=== PATIENT | male | born 1960 | race Caucasian/White ===

== ENCOUNTER 2024-08-18 13:27 | Emergency (ER) | payer MEDICARE, SELFPAY ==
[2024-08-18 13:28] VITALS: BMI 33.0
[2024-08-18 14:23] VITALS: BP 125/82; PULSE 79; RESP 18; TEMP 36.9; O2SAT 99
--- NOTE | 2024-08-18 14:30 | EKG_ITS ---
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
--- NOTE | 2024-08-18 14:55 | XR_ITS ---
Examination: CT brain head without contrast. 2-D sagittal coronal reconstructions Date and time of exam:August 18, 2024 1535 hours Comparison September 28, 2023 INDICATIONS: Headaches beginning 3 days ago CTDI: vol (mGy):51.2 DLP: (mGycm):1091 Technique: Multiple CT axial sections of the brain have been obtained, 5 mm slice thickness. Contrast has not been administered. 2-D sagittal, coronal reconstructions have been obtained Low dose protocols were performed. One or more of the following dose reduction techniques were used; automated exposure control, adjustment of the mA and/or KV according to patient size, use of iterative reconstruction technique. Findings: No significant ventricular enlargement. Intra-axial or extra-axial hemorrhage density is not seen. No mass effect or midline shift Basal cisterns are not remarkable. Fourth ventricle is midline. Cranial vault intact. Impression: Negative for acute hemorrhage, mass effect or midline shift Significant chronic ethmoid sinusitis Advise clinical correlation and follow-up accordingly
--- NOTE | 2024-08-18 14:56 | XR_ITS ---
Examination: PA lateral chest 2 views TECHNIQUE: Upright PA lateral chest 2 views Exam date and time: August 18, 2024 1523 hours INDICATIONS: Chest pain dizziness beginning 3 days ago FINDINGS: Normal heart size Lungs are clear. The osseous structures are intact IMPRESSION: No active disease
--- NOTE | 2024-08-18 14:56 | PD.EDRME ---
Rapid Medical Screening Exam E Arrival date/time: 08/18/24 13:27 64-year-old male presents the emergency department complaint of dizziness headache chest pain and fatigue Chief Complaint: Flu Like Symptoms Vital signs: Vital Signs Temperature 98.5 F 08/18/24 14:23 Pulse Rate 79 08/18/24 14:23 Respiratory Rate 18 08/18/24 14:23 Blood Pressure 125/82 08/18/24 14:23 Pulse Oximetry (%) 99 08/18/24 14:23 Oxygen Delivery Method Room Air 08/18/24 14:23
[2024-08-18 15:28] LABS: Basophils % (Auto) 0 % (0-2.5); Eosinophils # (Auto) 0.2 Thou/mm3 (0.0-0.5); Eosinophils % (Auto) 3 % (0-10); Hematocrit 43.8 % (41.0-53.0); Immature Granulocytes % (Auto) 0 % (0-0); Immature Granulocytes Auto 0.02 Thou/mm3 (0.00-0.00); Lymphocytes # (Auto) 2.1 Thou/mm3 (1.0-4.8); Lymphocytes % (Auto) 34 % (10-50); Mean Corpuscular HGB Conc 34.2 g/dl (31.0-37.0); Mean Corpuscular Hemoglobin 29.4 pg (25.0-35.0); Mean Corpuscular Volume 86 fL (80-100); Monocytes # (Auto) 0.4 Thou/mm3 (0.0-0.8); Monocytes % (Auto) 7 % (0-12); Neutrophils # (Auto) 3.5 Thou/mm3 (1.8-7.7); Neutrophils % (Auto) 56 % (37-80); Nucleated Red Blood Cell % 0 /100 WBC (0); Platelet Count 214 Thou/mm3 (140-440); RDW Standard Deviation 39.8 fL (35.1-43.9); Red Blood Count 5.11 Miln/mm3 (4.50-5.90); White Blood Count 6.2 Thou/mm3 (3.8-10.6)
[2024-08-18 15:48] LABS: B-Type Natriuretic Peptide < 20 pg/mL (0-100)
[2024-08-18 15:49] LABS: INR 1.1 (0.9-1.3); Partial Thromboplastin Time 29.4 Seconds (22.0-36.0); Prothrombin Time 11.7 Seconds (9.0-12.2)
[2024-08-18 15:50] LABS: Alanine Aminotransferase 22 U/L (10-49); Albumin, Serum 4.7 gm/dL (3.4-4.8); Albumin/Globulin Ratio 1.6 (1.2-2.2); Alkaline Phosphatase 91 U/L (46-116); Anion Gap 8 (7-16); Aspartate Amino Transferase 23 U/L (0-34); BUN/Creatinine Ratio 11 Ratio (12-20); Bilirubin,Total 0.5 mg/dL (0.3-1.2); Blood Urea Nitrogen 11 mg/dL (9-23); Calcium 9.4 mg/dL (8.3-10.6); Calcium (Corrected) 9.4 mg/dL (8.5-10.1); Chloride 104 mMol/L (98-107); Estimated Creatinine Clearance 81.8 mL/min (>60); Globulin 2.9 gm/dL (2.3-3.5); Glucose 106 mg/dL (74-106); Lipase 31 U/L (12-53); Magnesium 2.1 mg/dL (1.6-2.6); Osmolality,Calculated 273 (275-295); Potassium 4.5 mMol/L (3.4-5.1); Sodium 137 mMol/L (136-145); Total Protein 7.6 gm/dL (5.7-8.2); Troponin I < 0.002 ng/mL (0.0-0.045); eGFR > 60 See Note
--- NOTE | 2024-08-18 16:42 | EDNOTE_ITS ---
<Statement entered by Susan Villar MD - 08/19/24 16:30> As co-signing physician, I was present and available for consult prn. I concur with the plan and care as documented by the midlevel provider. Upper Respiratory Inf. RME/HPI General Chief Complaint: Flu Like Symptoms Stated Complaint: sob, fever, cp, headache x 3 days Time Seen by Provider: 08/18/24 16:27 Arrival date/time: 08/18/24 13:27 RME / HPI RME / HPI Narrative: 64-year-old male patient came in for evaluation regarding left-sided chest pain. This been ongoing for the last 3 days associated with shortness of breath not feeling well, headache, dizziness, severity moderate. Patient called his PCP and was advised to go to the emergency room to rule out cardiac events. Denies any other complaints. Patient has been taking his oxycodone twice a day. Patient denies any cough. Related Data Home Medications ?Medication ?Instructions ?Recorded ?Confirmed nitroglycerin 0.4 mg sublingual 0.4 mg buccal PRN PRN Angina 12/02/21 12/06/23 tablet pantoprazole 40 mg tablet,delayed 40 mg PO QDAY PRN Ac id Reflux 12/02/21 12/06/23 release alprazolam 0.5 mg tablet 0.5 mg PO QDAY PRN Anxiety 0 12/06/23 12/06/23 isosorbide mononitrate 30 mg 30 mg PO QAM 12/06/23 tablet,extended release 24 hr levothyroxine 25 mcg tablet 25 mcg PO QDAY 12/06/23 melatonin 2.5 mg chewable tablet 2.5 mg PO HS PRN Inso mnia 12/06/23 12/06/23 ranolazine 500 mg tablet,extended 500 mg PO DAILY 11/1312/06/23 release,12 hr Previous Rx's ?Medication ?Instructions ?Recorded atorvastatin 80 mg tablet 80 mg PO QPM #30 tabs clopidogrel 75 mg tablet (Plavix) 75 mg PO QDAY #30 ta bs 11/05/20 aspirin 325 mg tablet 325 mg PO QDAY #30 tabs 11/13 07/05 Allergies Allergy/AdvReac Type Severity Reaction Status Date / Time No Known Allergies Allergy Verified 09/28/23 13:01 Review of Systems Review of Systems Narrative Review of Systems: Review of system reviewed and within normal limits except mentioned in HPI ED Exam Narrative Physical exam: VITAL SIGNS: Reviewed. GENERAL APPEARANCE: Alert and interactive, follows commands, no acute distress, HEAD AND FACE: Non-traumatic. ENT: PERRL, pink conjunctivitis, eyelid no trauma, Mucous membrane moist. NECK: On the neck brace, no nuchal rigidity. CHEST: No tenderness, no crepitus, no paradoxical movement, no retractions. LUNGS: Clear, well ventilated, symmetric, no rales, no wheezing, no ronchi, no stridor, good breath sounds bilaterally. HEART: Regular rate, regular rhythm, no murmur, no gallops. ABDOMEN: Soft, positive bowel sounds, nondistended, no guarding, nontender, no rebound, no masses, RECTAL: Deferred. GENITAL: Deferred. NEUROLOGICAL: Gross motor function intact sensory function intact, Appropriate for age. MUSCULOSKELETAL: low back nontender, full range of motion. EXTREMITIES: Nontender, full range of motion. SKIN: Color pink, dry, no rash, no lacerations, no abrasions, no contusions. LYMPHATICS: Deferred. Course Quality Measures none Orders Category Date Time Status EKG (ED ONLY) *Do not use* NOW Care 08/18/24 14:[address] head/brain wo con Stat Exams 08/18/24 14:55 Completed EKG (ED Only) Stat Exams 08/18/24 14:30 Draft XR chest 2V Stat Exams 08/18/24 14:56 Completed B-Type Natriuretic Peptide Stat Lab 08/18/24 15:04 Completed CBC Stat Lab 08/18/24 15:04 Completed Comprehensive Metabolic Panel Stat Lab 08/18/24 15:04 Completed Lipase Stat Lab 08/18/24 15:04 Completed Magnesium Stat Lab 08/18/24 15:04 Completed Partial Thromboplastin Time Stat Lab 08/18/24 15:04 Completed Prothrombin Time with INR Stat Lab 08/18/24 15:04 Completed Troponin I Stat Lab 08/18/24 15:04 Completed Vital Signs Vital signs: Vital Signs Temperature 98.5 F 08/18/24 14:23 Pulse Rate 79 08/18/24 14:23 Respiratory Rate 18 08/18/24 14:23 Blood Pressure 125/82 08/18/24 14:23 Pulse Oximetry (%) 99 08/18/24 14:23 Oxygen Delivery Method Room Air 08/18/24 14:23 Upper Respiratory Infection [facility] Narrative [facility] Narrative:: 64-year-old male patient came in for evaluation regarding left-sided chest pain. This been ongoing for the last 3 days associated with shortness of breath not feeling well, headache, dizziness, severity moderate. Patient called his PCP and was advised to go to the emergency room to rule out cardiac events. Denies any other complaints. Patient has been taking his oxycodone twice a day. Patient denies any cough. Patient cardiac workup all came back normal. EKG showed sinus rhythm, ventricular to 67 bpm, no ST segment elevation depression noted. CT scan of the head came back unremarkable. The rest of the labs unremarkable. Troponin is normal. Repeat troponin is noted this patient still having chest discomfort for the last 3 days. Patient appears nontoxic and hemodynamically stable. Patient discharged home and instructed to follow-up with primary care provider in 24 to 48 hours. 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 How is presenting disease/condition affected by chronic disease/condition?: exacerbated by Evaluation data The following diagnostics were reviewed and interpreted by me:: lab results, radiology exam(s) and EKG tracing(s) Lab and/or radiology exams considered but not ordered:: None Interpretation Summary: See results in MDM Medications / Prescriptions Medications or Prescriptions considered but not ordered:: None Medication administrations:: None Consultations Consultation(s) initiated? (list below): No Diagnosis Upper Respiratory Differential Diagnosis: viral infection and other (Chest pain, headache, dizziness) Most likely diagnosis given after review of the tests above:: Chest pain, neck pain Admission Indicated Admission indicated?: not indicated Admission Request Was there a request for admission?: No Disposition Plan Disposition Plan: Discharge Discharge Attestation Discharge Attestation: The patient and all family members were given an opportunity to ask questions and understood the discharge instructions. Discharge instructions specifically effects, indications for sooner follow up or return to the emergency department, and the expected course of current diagnosis. Patient condition: Stable Discharge Plan Plan Patient Disposition: HOME (Self Care) Disposition Comment: Stable Prescriptions/Referrals Prescriptions/Med Rec: No Action pantoprazole 40 mg Tablet,Delayed Release (Dr/Ec) 40 mg PO QDAY PRN (Reason: Acid Reflux) nitroglycerin 0.4 mg Tablet, Sublingual 0.4 mg BUCCAL PRN PRN (Reason: Angina) aspirin 325 mg Tablet 325 mg PO QDAY Qty: 30 0RF clopidogrel [Plavix] 75 mg Tablet 75 mg PO QDAY Qty: 30 0RF atorvastatin 80 mg tablet 80 mg PO QPM Qty: 30 0RF levothyroxine 25 mcg Tablet 25 mcg PO QDAY alprazolam 0.5 mg Tablet 0.5 mg PO QDAY PRN (Reason: Anxiety) ranolazine 500 mg Tablet Extended Release 12 Hr 500 mg PO DAILY melatonin 2.5 mg Tablet,Chewable 2.5 mg PO HS PRN (Reason: Insomnia) isosorbide mononitrate 30 mg Tablet Extended Release 24 Hr 30 mg PO QAM Problem List Clinical Impression: Chest pain, Neck pain Patient/Caregiver Discharge Instructions Discharge Activity: activity as tolerated Education Materials: Medicine for Pain, ED Pain, Acute, Uncertain Cause Additional Instructions: Thank you for the opportunity for serving you today. You are stable for discharged . You are advised to: Follow-up with your PCP in 1 to 2 days Return to ED for worsening of symptoms Increase oral fluids Your cardiac workup today all came back unremarkable. The CT scan of your head also came back normal. The rest of the labs unremarkable. Take your pain medication responsibly. Print Language: Pashto Stand Alone Forms: Lalitha Award Info., Patient Portal Info Letter NIKHIL/JASWINDER Supervising Physician NIKHIL/JASWINDER Supervising Physician: MD Jian
== END 2024-08-18 17:05 | disposition home or self-care (01) ==
PROVIDERS: Nurse Practitioner Primary Care; Emergency Provider Emergency Medicine
DX: R07.89 Other chest pain (principal); M54.2 Cervicalgia; R42 Dizziness and giddiness; R51.9 Headache, unspecified; I44.1 Atrioventricular block, second degree; I10 Essential (primary) hypertension
CPT/HCPCS: 36415; 70450; 71046; 80053; 83690; 83735; 83880; 84484; 85025; 85610; 85730; 93005; 99284

== ENCOUNTER → 2024-11-14 | Outpatient (CLI) | payer MEDICARE, SELFPAY ==
--- NOTE | 2024-11-14 16:08 | XR_ITS ---
EXAMINATION: Ankle, left 3 views . Technique: Ankle AP, oblique, lateral 3 views Date and time of exam: November 14, 2024, 1624 hours INDICATIONS: Patient fell today with injury to the ankle, ankle pain. FINDINGS: No ankle fracture or dislocation. No foreign body. Plantar posterior bony calcaneal spurs. IMPRESSION: No acute fracture
--- NOTE | 2024-11-14 16:08 | XR_ITS ---
Examination: Tibia-Fibula, left , 2 views Technique: Tibia-fibula AP lateral 2 views Date and time of exam: November 14, 2024, 6009 hours INDICATIONS: Lower leg swelling and pain after falling today with injury to the lower leg FINDINGS: No acute fracture. No dislocation. No foreign body IMPRESSION: No acute fracture.
== END | disposition home or self-care (01) ==
PROVIDERS: Referring Provider Nurse Practitioner Family; Visit Provider Nurse Practitioner Family
DX: S89.92XA Unspecified injury of left lower leg, initial encounter (principal); S99.912A Unspecified injury of left ankle, initial encounter; W19.XXXA Unspecified fall, initial encounter
CPT/HCPCS: 73590; 73610

== ENCOUNTER → 2024-12-08 | Outpatient (CLI) | payer MEDICARE, SELFPAY ==
--- NOTE | 2024-12-08 | XR_ITS ---
Examination: Duplex scan of the lower extremity, unilateral left complete Date and time of exam: December 08, 2024 1128 hours INDICATIONS: Left leg pain and swelling post Surgery July 2024 Technique: Duplex scan of the extremity veins using B-mode/grayscale imaging and Doppler spectral analysis and color flow Attention is directed to internal echogenicity, compression and augmentation involving these veins, color flow assessment, spectral analysis Findings: Major deep venous structures in the extremity demonstrate normal course and caliber. There is no evidence of deep vein thrombosis. Normal color flow and spectral analysis Impression: Negative for DVT..
== END | disposition home or self-care (01) ==
LOC: CDIM 11:10
PROVIDERS: PCP Nurse Practitioner Family; Referring Provider Nurse Practitioner Family; Visit Provider Nurse Practitioner Family
DX: M79.605 Pain in left leg (principal)
CPT/HCPCS: 93971

== ENCOUNTER 2025-04-25 12:24 | Emergency (ER) | payer MEDICARE, SELFPAY ==
[2025-04-25 12:25] VITALS: BMI 33.0
--- NOTE | 2025-04-25 12:29 | EKG_ITS ---
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
[2025-04-25 12:34] VITALS: BP 161/91; PULSE 71; RESP 18; TEMP 36.7; O2SAT 97
--- NOTE | 2025-04-25 12:42 | XR_ITS ---
EXAMINATION: PA chest single view TECHNIQUE: Upright PA chest single view Date and time: April 25, 2025, 1259 hours, comparison August 18, 2024 INDICATIONS: Left-sided chest pain shortness of breath and weakness today. FINDINGS: Early pneumonia in the left lower lung zone Right lung clear Normal heart size IMPRESSION: Early pneumonia in the left lower lung zone
--- NOTE | 2025-04-25 12:43 | PD.EDCHEST ---
ED Chest Pain RME/HPI General Chief Complaint: Chest Pain Stated Complaint: CHEST PAIN; HX TX, CARDIAC STENTS Time Seen by Provider: 04/25/25 12:41 Arrival date/time: 04/25/25 12:24 04/25/25 12:20 60-year-old male patient with significant history of anxiety, chronic neck pain, diabetes mellitus hypertension, came in for evaluation regarding left-sided chest pain. Patient has been having left-sided chest pain for more than a week, getting worse today, severity moderate. Patient told me the pain does not radiate.. Patient also complained of shortness of breath. Patient took oxycodone today. Patient denies any cough denies any other complaints no medication was taken prior to ER visit. Related Data Home Medications ?Medication ?Instructions ?Recorded ?Confirmed nitroglycerin 0.4 mg sublingual 0.4 mg buccal PRN PRN Angina 12/02/21 12/06/23 tablet pantoprazole 40 mg tablet,delayed 40 mg PO QDAY PRN Acid Reflux 12/02/21 12/06/23 release alprazolam 0.5 mg tablet 0.5 mg PO QDAY PRN Anxiety 12/06/23 12/06/23 isosorbide mononitrate 30 mg 30 mg PO QAM 12/06/23 12/06/23 tablet,extended release 24 hr levothyroxine 25 mcg tablet 25 mcg PO QDAY 12/06/23 12/06/23 melatonin 2.5 mg chewable tablet 2.5 mg PO HS PRN Insomnia 12/06/23 12/06/23 ranolazine 500 mg tablet,extended 500 mg PO DAILY 12/06/23 12/06/23 release,12 hr Previous Rx's ?Medication ?Instructions ?Recorded atorvastatin 80 mg tablet 80 mg PO QPM #30 tabs 11/05/20 clopidogrel 75 mg tablet (Plavix) 75 mg PO QDAY #30 tabs 11/05/20 aspirin 325 mg tablet 325 mg PO QDAY #30 tabs 12/02/21 levofloxacin 500 mg tablet 500 mg PO Q24H 7 days #7 tabs 04/25/25 Allergies Allergy/AdvReac Type Severity Reaction Status Date / Time No Known Allergies Allergy Verified 04/25/25 12:28 Review of Systems Review of Systems Narrative Review of Systems: Review of system reviewed and within normal limits except mentioned in HPI ED Exam Narrative Physical exam: VITAL SIGNS: Reviewed. GENERAL APPEARANCE: Alert and interactive, follows commands, no acute distress, HEAD AND FACE: Non-traumatic. ENT: PERRL, pink conjunctivitis, eyelid no trauma, Mucous membrane moist. NECK: Supple, nontender, no nuchal rigidity. CHEST: Left-sided chest tenderness, no crepitus, no paradoxical movement, no retractions. LUNGS: Clear, well ventilated, symmetric, no rales, no wheezing, no ronchi, no stridor, good breath sounds bilaterally. HEART: Regular rate, regular rhythm, no murmur, no gallops. ABDOMEN: Soft, positive bowel sounds, nondistended, no guarding, nontender, no rebound, no masses, RECTAL: Deferred. GENITAL: Deferred. NEUROLOGICAL: Gross motor function intact sensory function intact, Appropriate for age. MUSCULOSKELETAL: low back nontender, full range of motion. EXTREMITIES: Nontender, full range of motion. SKIN: Color pink, dry, no rash, no lacerations, no abrasions, no contusions. LYMPHATICS: Deferred. Course Quality Measures none Orders Category Date Time Status EKG (ED ONLY) *Do not use* NOW Care 04/25/25 12:29 Completed EKG (ED Only) Stat Exams 04/25/25 12:29 Draft XR chest 1V Stat Exams 04/25/25 12:42 Completed B-Type Natriuretic Peptide Stat Lab 04/25/25 13:07 Completed CBC Stat Lab 04/25/25 13:07 Completed Comprehensive Metabolic Panel Stat Lab 04/25/25 13:07 Completed Partial Thromboplastin Time Stat Lab 04/25/25 13:07 Completed Prothrombin Time with INR Stat Lab 04/25/25 13:07 Completed Troponin I Stat Lab 04/25/25 13:07 Completed Urinalysis, C/S if Indicated Stat Lab 04/25/25 14:31 Completed Aspirin Med 04/25/25 12:42 Discontinued 325 mg PO X1 ONE Morphine* Inj Med 04/25/25 15:14 Discontinued 4 mg IM X1 ONE mg Hyd/Al Hyd/Solitario Susp [Maalox Susp] Med 04/25/25 12:42 Discontinued 30 ml PO X1 ONE Vital Signs Vital signs: Vital Signs Temperature 98.0 F 04/25/25 12:34 Pulse Rate 71 04/25/25 12:34 Respiratory Rate 18 04/25/25 12:34 Blood Pressure 161/91 H 04/25/25 12:34 Pulse Oximetry (%) 97 04/25/25 12:34 Oxygen Delivery Method Room Air 04/25/25 12:34 Chest Pain MDM Narrative MDM Narrative:: 04/25/25 12:20 60-year-old male patient with significant history of anxiety, chronic neck pain, diabetes mellitus hypertension, came in for evaluation regarding left-sided chest pain. Patient has been having left-sided chest pain for more than a week, getting worse today, severity moderate. Patient told me the pain does not radiate.. Patient also complained of shortness of breath. Patient took oxycodone today. Patient denies any cough denies any other complaints no medication was taken prior to ER visit. Patient is not very good compliant with aspirin and Plavix Patient workup including troponin came back unremarkable. Repeat troponin is not needed at this time patient's been having pain for more than a week. Patient chest pain is probably related to his chronic pain syndrome. EKG showed normal sinus rhythm, ventricular rate of 66 bpm, no ST segment elevation or depression noted. Patient received morphine Maalox and aspirin in the emergency room. With significant improvement of pain. Chest x-ray is read as possible early pneumonia patient is not having any cough no fever however we decided to give him Levaquin. 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 Patient agrees with the plan. Stable for discharge home Patient data External records reviewed:: None Clinical information provided by:: patient Social determinants that could affect healthcare access:: none Patient has the following chronic illnesses:: CAD, history of stents How is presenting disease/condition affected by chronic disease/condition?: exacerbated by Evaluation data The following diagnostics were reviewed and interpreted by me:: lab results, radiology exam(s) and EKG tracing(s) Lab and/or radiology exams considered but not ordered:: See MDM Interpretation Summary: See MDM Medications / Prescriptions Medications or Prescriptions considered but not ordered:: None Medication administrations:: Medication Administration History Discontinued Medications Al Hydrox/Mg Hydrox/Simethicone (Mg Hyd/Al Hyd/Solitario (Maalox Reg) Susp 30 Ml Udc) 30 ml PO X1 ONE Stop: 04/25/25 12:43 Last Admin: 11/12/25 12:50 Dose: 30 ml Documented By: Aspirin (Aspirin 325 Mg Tablet) 325 mg PO X1 ONE Stop: 04/25/25 12:43 Last Admin: 04/25/25 12:49 Dose: 325 mg Documented By: Morphine Sulfate (Morphine Sulf Inj 4 Mg/Ml Vial) 4 mg IM X1 ONE Stop: 04/25/25 15:15 Last Admin: 04/25/25 15:37 Dose: 4 mg Documented By: GM Morphine aspirin and Maalox Consultations Consultation(s) initiated? (list below): No Diagnosis Chest Pain Differential Diagnosis: pneumothorax, stable angina and chest pain Most likely diagnosis given after review of the tests above:: Chest pain, chronic pain syndrome Admission Indicated Admission indicated?: not indicated Admission Request Was there a request for admission?: No Disposition Plan Disposition Plan: Discharge Discharge Attestation Discharge Attestation: The patient and all family members were given an opportunity to ask questions and understood the discharge instructions. Discharge instructions specifically effects, indications for sooner follow up or return to the emergency department, and the expected course of current diagnosis. Patient condition: Stable Discharge Plan Plan Patient Disposition: HOME (Self Care) Discharge Disposition comment: Stable Prescriptions/Referrals Prescriptions/Med Rec: New levofloxacin 500 mg tablet 500 mg PO Q24H 7 Days Qty: 7 0RF No Action pantoprazole 40 mg Tablet,Delayed Release (Dr/Ec) 40 mg PO QDAY PRN (Reason: Acid Reflux) nitroglycerin 0.4 mg Tablet, Sublingual 0.4 mg BUCCAL PRN PRN (Reason: Angina) aspirin 325 mg Tablet 325 mg PO QDAY Qty: 30 0RF clopidogrel [Plavix] 75 mg Tablet 75 mg PO QDAY Qty: 30 0RF atorvastatin 80 mg tablet 80 mg PO QPM Qty: 30 0RF levothyroxine 25 mcg Tablet 25 mcg PO QDAY alprazolam 0.5 mg Tablet 0.5 mg PO QDAY PRN (Reason: Anxiety) ranolazine 500 mg Tablet Extended Release 12 Hr 500 mg PO DAILY melatonin 2.5 mg Tablet,Chewable 2.5 mg PO HS PRN (Reason: Insomnia) isosorbide mononitrate 30 mg Tablet Extended Release 24 Hr 30 mg PO QAM Problem List Clinical Impression: Chest pain, Chronic pain syndrome Patient/Caregiver Discharge Instructions Discharge Activity: activity as tolerated Education Materials: Managing Chronic Pain Additional Instructions: Thank you for the opportunity for serving you today. You are stable for discharged . You are advised to: Follow-up with your PCP in 1 to 2 days Return to ED for worsening of symptoms Print Language: Beninese Stand Alone Forms: Lalitha Award Info., Patient Portal Info Letter PA/JASWINDER Supervising Physician NIKHIL/JASWINDER Supervising Physician: MD Ugo
[2025-04-25] MEDS: MG HYD/AL HYD/SIME (Maalox Reg) SUSP 30 ML UDC PO (12:50)
[2025-04-25 13:41] LABS: B-Type Natriuretic Peptide < 20 pg/mL (0-100)
[2025-04-25 13:44] LABS: Alanine Aminotransferase 22 U/L (10-49); Albumin, Serum 5.1 gm/dL (3.4-4.8); Albumin/Globulin Ratio 1.9 (1.2-2.2); Alkaline Phosphatase 81 U/L (46-116); Anion Gap 10 (7-16); Aspartate Amino Transferase 22 U/L (0-34); BUN/Creatinine Ratio 7 Ratio (12-20); Basophils # (Auto) 0.0 Thou/mm3 (0.0-0.2); Basophils % (Auto) 0 % (0-2.5); Bilirubin,Total 0.6 mg/dL (0.3-1.2); Blood Urea Nitrogen 6 mg/dL (9-23); Calcium 10.0 mg/dL (8.3-10.6); Calcium (Corrected) 10.0 mg/dL (8.5-10.1); Carbon Dioxide 26.4 mMol/L (20.0-31.0); Chloride 104 mMol/L (98-107); Creatinine (Component) 0.9 mg/dL (0.6-1.3); Eosinophils # (Auto) 0.1 Thou/mm3 (0.0-0.5); Eosinophils % (Auto) 2 % (0-10); Estimated Creatinine Clearance 90.8 mL/min (>60); Globulin 2.7 gm/dL (2.3-3.5); Glucose 92 mg/dL (74-106); Hematocrit 45.1 % (41.0-53.0); Hemoglobin 15.2 g/dL (13.5-16.0); Immature Granulocytes Auto 0.01 Thou/mm3 (0.00-0.00); Lymphocytes # (Auto) 2.8 Thou/mm3 (1.0-4.8); Lymphocytes % (Auto) 44 % (10-50); Mean Corpuscular HGB Conc 33.7 g/dl (31.0-37.0); Mean Corpuscular Hemoglobin 29.2 pg (25.0-35.0); Mean Corpuscular Volume 87 fL (80-100); Monocytes # (Auto) 0.5 Thou/mm3 (0.0-0.8); Monocytes % (Auto) 7 % (0-12); Neutrophils # (Auto) 2.9 Thou/mm3 (1.8-7.7); Neutrophils % (Auto) 46 % (37-80); Nucleated Red Blood Cell # 0.00 Thou/mm3 (0.00-0.00); Nucleated Red Blood Cell % 0 /100 WBC (0); Osmolality,Calculated 277 (275-295); Platelet Count 193 Thou/mm3 (140-440); Potassium 4.4 mMol/L (3.4-5.1); RDW Standard Deviation 41.7 fL (35.1-43.9); Red Blood Count 5.21 Miln/mm3 (4.50-5.90); Sodium 140 mMol/L (136-145); Total Protein 7.8 gm/dL (5.7-8.2); Troponin I < 0.002 ng/mL (0.0-0.045); White Blood Count 6.3 Thou/mm3 (3.8-10.6); eGFR > 60 See Note
[2025-04-25 13:54] LABS: INR 1.1 (0.9-1.3); Partial Thromboplastin Time 27.8 Seconds (22.0-36.0); Prothrombin Time 11.4 Seconds (9.0-12.2)
[2025-04-25 14:26] VITALS: BP 142/83; PULSE 65; RESP 18; TEMP 37; O2SAT 96
[2025-04-25 14:54] LABS: Collection Type, Urine Clean Catch; Squamous Epithelial Cell,Urine 0 /hpf (0-5)
[2025-04-25 15:02] LABS: Bilirubin,Urine Negative (Negative); Blood,Urine Negative (Negative); Clarity,Urine Clear (Clear/Hazy); Color,Urine Lt-Yellow (Lt Yel-Yel); Culture Indicated,Urine Not Indicated; Glucose, Urine Negative (Negative); Ketones,Urine Negative (Negative); Leukocyte Esterase,Urine Negative (Negative); Nitrite,Urine Negative (Negative); PH,Urine 6.0 (5.0-7.0); Protein,Urine Negative (Neg - Trace); RBC,Urine < 1 /hpf (0-3); Specific Gravity,Urine 1.009 (1.001-1.035); Urobilinogen,Urine Negative mg/dL (0.0-1.0); WBC,Urine < 1 /hpf (0-5)
[2025-04-25] MEDS: MORPHINE SULF INJ 4 MG/ML VIAL IM (15:37)
[2025-04-25 15:42] VITALS: BP 127/81; PULSE 72; RESP 17; TEMP 37.1; O2SAT 95
== END 2025-04-25 15:51 | disposition home or self-care (01) ==
LOC: SERX 15:35
PROVIDERS: Nurse Practitioner Family; Emergency Provider Family Medicine
DX: R07.89 Other chest pain (principal); G89.4 Chronic pain syndrome; E11.9 Type 2 diabetes mellitus without complications; I10 Essential (primary) hypertension; R06.02 Shortness of breath
CPT/HCPCS: 36415; 71045; 80053; 81001; 83880; 84484; 85025; 85610; 85730; 93005; 96372; 99284; J2270; A9270